=== PATIENT | female | born 1970 | race Hispanic/Latino ===

== ENCOUNTER 2018-02-20 12:33 | Emergency (ER) | payer SELFPAY ==
[2018-02-20 12:53] LABS: Red Blood Cell (RBC) Count 4.55 mill/uL (4.20-5.40); White Blood Cell (WBC) Count 14.5 thou/uL (4.8-10.8)
[2018-02-20 12:54] LABS: #Basophils 0.1 thou/uL (0.0-0.2); #Eosinphils 0.2 thou/uL (0.0-0.7); #Lymphocytes 2.2 thou/uL (1.20-3.40); #Monocytes 0.5 thou/uL (0.11-0.59); #Neutrophils 11.6 thou/uL (1.40-6.50); %Basophils 0.6 % (0.0-1.0); %Lymphocytes 14.9 % (21.0-51.0); %Monocytes 3.5 % (0.0-10.0); Hemoglobin 13.8 g/dL (12.0-16.0); Mean Corpuscular HGB CONC 33.1 g/dL (32.0-36.0); Mean Corpuscular Hemoglobin 30.3 pg (27.0-31.0); Mean Corpuscular Volume 91.6 fl (81.0-99.0); Platelet Count 296 thou/uL (130-400); RBC Distribution Width 11.7 % (11.5-14.5)
[2018-02-20] MEDS ORDERED: Lorazepam 2 MG/ML VIAL ONE (12:57)
[2018-02-20] MEDS ORDERED: Ondansetron ODT 4 MG TAB ONE (12:57)
[2018-02-20 13:03] LABS: PTT 29.6 SEC (22.9-36.1)
[2018-02-20 13:04] LABS: Prothrombin Time 13.3 SEC (12.0-14.7)
[2018-02-20 13:17] LABS: ALT (SGPT) 22 U/L (8-55); AST (SGOT) 28 U/L (5-34); Albumin 3.9 g/dL (3.5-5.0); Alkaline Phosphatase 111 U/L (40-150); Anion Gap 11 mmol/L (10-20); BUN (Urea Nitrogen) 8 mg/dL (7.0-18.7); Bilirubin, Total 0.4 mg/dL (0.2-1.2); CK (CPK) 148 U/L (29-168); Calc. Creatinine Clearance 0 mL/min (70-130); Calcium 8.8 mg/dL (7.8-10.44); Carbon Dioxide 24 mmol/L (22-29); Chloride 107 mmol/L (98-107); Estimated GFR-MDRD Greater than 90; Globulin 3.5 g/dL (2.4-3.5); Glucose 113 mg/dL (70-105); Potassium 3.9 mmol/L (3.5-5.1); Protein, Total 7.4 g/dL (6.0-8.3); Sodium 138 mmol/L (136-145)
[2018-02-20 13:21] LABS: CKMB 1.1 ng/mL (0-6.6); Troponin I Less than 0.010 ng/mL (< 0.028)
[2018-02-20] MEDS ORDERED: Promethazine HCl 25 MG/ML VIAL ONE (13:54)
[2018-02-20] MEDS ORDERED: Lidocaine 1% w/Epinephrine 1:100K 20 ML VIAL ONE (14:12)
[2018-02-20] MEDS ORDERED: Morphine 4 MG/ML VIAL ONE (15:12)
[2018-02-20 15:27] LABS: Color Of CSF Supernatant COLORLESS (Colorless); Tube # 2; Unspun CSF Color COLORLESS (Colorless)
[2018-02-20 15:28] LABS: CSF Source CSF; Clarity Clear (Clear); Tube # 4
[2018-02-20 15:33] LABS: RBC Count - Manual 1 /cumm (None Seen); WBC/NonHematics Count - Manual 0 /cumm (0-5)
--- NOTE | 2018-02-20 15:33 | CT ---
CT BRAIN NONCONTRAST: HISTORY: 47-year-old female with headache, dizziness, nausea, and emesis. FINDINGS: There is no midline shift or any other mass effect. There is no evidence of acute intracranial hemor rhage, large cortical infarct, obstructive hydrocephalus, or extraaxial fluid collection. The calvar ium is intact. IMPRESSION: No acute intracranial findings. jn [] POS: [facility]
[2018-02-20 15:35] LABS: CSF Source CSF; Clarity Clear (Clear); Tube # 1
[2018-02-20 15:43] LABS: RBC Count - Manual 71 /cumm (None Seen); WBC/NonHematics Count - Manual 2 /cumm (0-5)
[2018-02-20 15:44] LABS: CSF, Glucose 56 mg/dl (40-70); CSF, Protein 30 mg/dL (15-40)
[2018-02-20] MEDS ORDERED: Magnesium Sulfate 2 GM/100 ML BAG ONE (16:20)
[2018-02-20] MEDS ORDERED: diphenhydrAMINE 50 MG/ML VIAL ONE (16:20)
[2018-02-20] MEDS ORDERED: Ketorolac Tromethamine 30 MG/ML VIAL ONE (16:20)
[2018-02-20] MEDS ORDERED: Acetaminophen 500 MG TAB ONE (16:20)
== END 2018-02-20 18:51 | disposition home or self-care (01) ==
LOC: ERS 12:33
DX: R51 Headache (principal)
CPT/HCPCS: 62270; 70450; 80053; 82550; 82553; 82945; 84157; 84484; 85025; 85610; 85730; 87070; 87205; 89051; 93005; 96361; 96365; 96366; 96375; J1200; J1885; J2001; J2060; J2270; J2550; J3475; Q0162